=== PATIENT | male | born 1955 | race Caucasian/White ===

== ENCOUNTER 2018-06-14 15:14 | Emergency (ER) | payer MEDICARE, OTHER ==
[~2018-06-14] VITALS: Ht 185.4 cm; Wt 88.5 kg
[2018-06-14 15:33] VITALS: BP 189/106
== END 2018-06-14 16:57 | disposition home or self-care (01) ==
LOC: ER 15:26
DX: S60.551A Superficial foreign body of right hand, initial encounter (principal); M19.041 Primary osteoarthritis, right hand; F17.210 Nicotine dependence, cigarettes, uncomplicated; X58.XXXA Exposure to other specified factors, initial encounter; Y93.89 Activity, other specified; Y92.89 Other specified places as the place of occurrence of the external cause; Y99.8 Other external cause status
CPT/HCPCS: 10120; 73130

== ENCOUNTER 2018-10-11 16:17 | Inpatient (IN) | payer BC, MEDICAID ==
[~2018-10-11] VITALS: Ht 190.5 cm; Wt 96.1 kg
[2018-10-11 16:56] LABS: Basophils # (auto) 0.1 uL; Eosinophils # (auto) 0.1 uL; Eosinophils % (auto) 0.6 % (0.0-7.0); Hematocrit 44.9 % (41.0-53.0); Hemoglobin 14.8 g/dL (13.5-17.5); Lymphocytes # (auto) 1.7 uL; Lymphocytes % (auto) 16.8 % (10.0-50.0); Mean Corpuscular Hemoglobin 31.3 pg (28.0-32.0); Mean Corpuscular Hgb Conc. 33.1 g/dL (32.0-36.0); Mean Corpuscular Volume 94.5 fL (80.0-100.0); Monocytes # (auto) 0.8 uL; Monocytes % (auto) 7.8 % (0.0-12.0); Neutrophils # (auto) 7.3 uL; Neutrophils % (auto) 73.8 % (37.0-80.0); Nucleated Red Blood Cells % 0.4 %; Platelet Count (auto) 352 10^3/uL (140-450); Red Blood Cells 4.75 10^6/uL (4.5-5.90); Red Cell Distribution Width 14.4 % (11.8-14.3); White Blood Cell 9.9 10^3/uL (4.4-10.8)
[2018-10-11 17:12] LABS: Albumin 3.2 g/dL (3.4-5.0); Calcium 8.4 mg/dL (8.5-10.1); Potassium 4.4 mmol/L (3.5-5.1)
[2018-10-11 17:15] LABS: Total Protein 7.2 g/dL (6.4-8.2)
[2018-10-11] MEDS ORDERED: FUROSEMIDE 40 MG/4 ML VIAL IV ONE (17:30)
[2018-10-11 17:51] LABS: Magnesium 2.2 mg/dL (1.6-2.6)
[2018-10-11] MEDS ORDERED: TEMAZEPAM 15 MG CAP PO PRN (19:00)
[2018-10-11] MEDS ORDERED: LORazepam 0.5 MG TAB PO PRN (19:00)
[2018-10-11] MEDS ORDERED: MORPHINE SULFATE 10 MG/ML INJ 1ML SDV IV PRN ×2 (19:00)
[2018-10-11] MEDS ORDERED: NITROGLYCERIN 0.4 MG SL TAB SL PRN (19:00)
[2018-10-11] MEDS ORDERED: ACETAMINOPHEN 500 MG TAB PO PRN (19:00)
[2018-10-11] MEDS ORDERED: PROMETHAZINE HCL 25 MG/ML 1ML IV PRN (19:00)
[2018-10-11] MEDS ORDERED: LACTULOSE 20Gm/30ML SOLN PO PRN (19:00)
[2018-10-11] MEDS ORDERED: ALBUTEROL SULF 2.5 MG/0.5ML(0.5%) NEB SOLN NEB PRN (19:00)
[2018-10-11] MEDS ORDERED: HYDROcodone-ACET 5/325MG TAB PO PRN (19:00)
[2018-10-11] MEDS ORDERED: DEXTROSE (50%) 50ML SYRG IV PRN (19:00)
[2018-10-11 19:36] LABS: INR 1.22 (0.9-1.15); Partial Thromboplastin Time 25.2 sec (23.78-33.04); Prothrombin Time 12.9 sec (9.27-12.13)
[2018-10-11] MEDS ORDERED: OSELTAMIVIR 75 MG CAP PO ONE (19:45)
[2018-10-11 20:05] VITALS: BP 156/104
--- NOTE | 2018-10-11 20:05 | NUR ---
Telemetry admit from [facility] admitted to Telemetry unit after SBAR received. Patient oriented to IGGY PETERSEN, RN primary RN, unit, room, bed, and unit policies regarding patient care and visiting hours. Patient now on continuous telemetry monitoring, tele box # 8 and telemetry reading on arrival to unit is [facility] 114. Patient placed on bedside oxygen, weighed by bedscale and encouraged to call if they need something. All questions and concerns addressed, patient verbalized understanding. Informed in regards to POC and in regards to samples needed to be collected. will continue to monitor pt. Note:
[2018-10-11] MEDS: FUROSEMIDE 40 MG/4 ML VIAL IV SCH (20:22)
[2018-10-11] MEDS ORDERED: LABETALOL HCL 5 MG/ML ML 20ML VIAL IV ONE (20:45)
--- NOTE | 2018-10-11 20:46 | NUR ---
HOSPITALIST TELEPHONE ORDER Informed hospitalist in regards to pt BP 156/106 HR 114 TELEPHONE ORDER READ BACK Labetalol IV 10 mg ONCE
--- NOTE | 2018-10-11 21:05 | NUR ---
RAPID INFLUENZA A/B sent to lab through bullet
[2018-10-11] MEDS: CARVEDILOL 3.125 MG TAB PO SCH (21:13)
[2018-10-11] MEDS: SODIUM CHLOR 0.9% PF (SALINE LOCK) 10ML VIAL/SYR IV SCH (21:14)
[2018-10-11 22:00] VITALS: BP 156/104
[2018-10-11 22:55] LABS: Alcohol, Urine < 3.0 mg/dL (0-5); Amphetamine Screen, Urine POSITIVE (NEGATIVE); Barbiturate Scree,Urine NEGATIVE (NEGATIVE); Benzodiazephine Screen, Urine NEGATIVE (NEGATIVE); Cannabinoid Screen, Urine NEGATIVE (NEGATIVE); Cocaine Screen, Urine NEGATIVE (NEGATIVE); Opiate Scree,Urine NEGATIVE (NEGATIVE); Phencyclidine Screen, Urine NEGATIVE (NEGATIVE)
[2018-10-12] MEDS: ACCU-CHEK COMFORT CURVE STRIP VI SCH ×4 (00:02→17:54)
--- NOTE | 2018-10-12 00:15 | NUR ---
cALLED LAB Called lab in regards to 0000 trop lab draw update will continue to monitor.
--- NOTE | 2018-10-12 01:04 | NUR ---
CALLED LAB called lab in regards midnight trop, technical training specialist still hasnt been drawn but will call wharf labourer assigned for pt trops to be drawn, will continue to monitor pt.
[2018-10-12] MEDS: ALBUTEROL SULF 2.5 MG/0.5ML(0.5%) NEB SOLN NEB SCH ×4 (01:23→19:31)
[2018-10-12] MEDS: IPRATROPIUM BROM 0.5 MG/2.5ML INH SOL NEB SCH ×4 (01:24→19:31)
--- NOTE | 2018-10-12 01:25 | NUR ---
Respiratory note: AT BEDSIDE FOR MED NEB TX. PT TOLERATING WELL VIA MASK. PT FOUND OFF O2 POX 86. WILL PLACE PT BACK ON O2 WHEN TX IS DONE. O2 SET AT 3LPM.
[2018-10-12 01:33] VITALS: BP 137/83
--- NOTE | 2018-10-12 01:55 | NUR ---
PT ROUNDS PT off NC, Instructed pt he must have Oxygen due to his o2 levels dropping. NC reapplied will continue to monitor pt.
--- NOTE | 2018-10-12 02:36 | NUR ---
PT ROUNDS PT off NC reinstructed pt to replace oxygen, pt understood will continue to monitor pt.
[2018-10-12 04:38] VITALS: BP 132/93
[2018-10-12] MEDS: FUROSEMIDE 40 MG/4 ML VIAL IV SCH ×2 (05:35→17:56)
[2018-10-12] MEDS: SODIUM CHLOR 0.9% PF (SALINE LOCK) 10ML VIAL/SYR IV SCH ×2 (05:35→15:56)
[2018-10-12 06:04] LABS: Basophils # (auto) 0.1 uL; Eosinophils # (auto) 0.1 uL; Eosinophils % (auto) 1.4 % (0.0-7.0); Hemoglobin 13.3 g/dL (13.5-17.5); Lymphocytes # (auto) 1.8 uL; Lymphocytes % (auto) 19.8 % (10.0-50.0); Mean Corpuscular Hemoglobin 32.2 pg (28.0-32.0); Mean Corpuscular Volume 94.8 fL (80.0-100.0); Monocytes # (auto) 0.7 uL; Monocytes % (auto) 7.4 % (0.0-12.0); Neutrophils # (auto) 6.4 uL; Neutrophils % (auto) 70.4 % (37.0-80.0); Nucleated Red Blood Cells % 0.3 %; Platelet Count (auto) 330 10^3/uL (140-450); Red Blood Cells 4.11 10^6/uL (4.5-5.90); Red Cell Distribution Width 13.8 % (11.8-14.3); White Blood Cell 9.1 10^3/uL (4.4-10.8)
[2018-10-12 06:25] LABS: Albumin 2.8 g/dL (3.4-5.0); BUN/Creatinine Ratio 20.1; Potassium 3.8 mmol/L (3.5-5.1)
[2018-10-12 06:29] LABS: Bilirubin, Total 0.6 mg/dL (0.2-1.0); Total Protein 6.2 g/dL (6.4-8.2)
--- NOTE | 2018-10-12 08:00 | NUR ---
Opening Shift Note Assumed care of patient, awake, alert and oriented X4. No S/S of distress/SOB or pain. Tele# 8, sinus rhythm @ 98 bpm. IV to right forearm, 20 gauge, patent and saline locked. Instructed on POC and to call for assist PRN, verbalized understanding. Bed locked, in lowest position, call light within reach, will continue to monitor for changes Q1hr and PRN.
[2018-10-12 09:00] VITALS: BP 139/93
[2018-10-12] MEDS: cefTRIAXone 1GM/50ML D5W 50 ML IV SCH (09:38)
[2018-10-12] MEDS ORDERED: OSELTAMIVIR 75 MG CAP PO SCH (10:00)
--- NOTE | 2018-10-12 10:15 | NUR ---
ECHO robotics testing technician at bedside.
[2018-10-12] MEDS: AZITHROMYCIN 500MG/ 250ML 250 ML IV SCH (10:47)
[2018-10-12] MEDS: ASPirin 81 mg TAB PO SCH (10:48)
[2018-10-12] MEDS: CARVEDILOL 3.125 MG TAB PO SCH ×2 (10:48→21:44)
[2018-10-12] MEDS: POTASSIUM CHL 20 Meq TABLET PO SCH (10:48)
[2018-10-12] MEDS: PANTOPRAZOLE 40 MG TAB PO SCH (10:49)
[2018-10-12] MEDS: ENALAPRIL MALEATE 2.5 MG TAB PO SCH (10:49)
[2018-10-12] MEDS: ENOXAPARIN SOD 40 MG/0.4 ML SYRINGE SC SCH (10:49)
[2018-10-12 13:06] VITALS: BP 91/61
--- NOTE | 2018-10-12 14:32 | NUR ---
assessment Patient would like information on advanced directive. Patient has been provided with advanced directive. Christina Pineda to see for PCP. Addendum: 10/15/18 at 1433 by Christina BOWENS Amended: Links added.
--- NOTE | 2018-10-12 14:35 | NUR ---
ROUNDS Dr Ry Sung at bedside for rounds, new orders received and followed through. Patient updated on plan of care, verbalized understanding.
--- NOTE | 2018-10-12 16:00 | NUR ---
GI Dr Ricketts at bedside for GI consult, new orders received and followed through. Patient updated on plan of care, verbalized understanding.
[2018-10-12 17:12] VITALS: BP 109/72
--- NOTE | 2018-10-12 17:34 | NUR ---
CARDIOLOGY Dr Silverman at bedside for Cardiology consult, new orders received and followed through. Patient updated on plan of care, verbalized understanding.
--- NOTE | 2018-10-12 19:25 | NUR ---
Care endorsed to KAYLYN Grant, night nurse.
[2018-10-12 21:57] VITALS: BP 121/74
--- NOTE | 2018-10-13 00:08 | NUR ---
RT NOTE PT REFUSED TX. PT STATED THEY ARE BREATHING FINE. PT DENIES ANY SOB. NO SIGNS OF RESP DISTRESS NOTED BY RT. PT AWARE TO HAVE RT PAGED IF NEEDED. SPO2 97% ON RA, CR 85, RR 16.
[2018-10-13] MEDS: SODIUM CHLOR 0.9% PF (SALINE LOCK) 10ML VIAL/SYR IV SCH ×4 (00:15→22:37)
[2018-10-13] MEDS: ACCU-CHEK COMFORT CURVE STRIP VI SCH ×4 (00:15→18:00)
[2018-10-13 05:00] VITALS: BP 117/69
[2018-10-13] MEDS: IPRATROPIUM BROM 0.5 MG/2.5ML INH SOL NEB SCH ×4 (06:12→19:17)
[2018-10-13] MEDS: ALBUTEROL SULF 2.5 MG/0.5ML(0.5%) NEB SOLN NEB SCH ×4 (06:12→19:18)
[2018-10-13] MEDS: FUROSEMIDE 40 MG/4 ML VIAL IV SCH ×2 (06:40→17:43)
--- NOTE | 2018-10-13 07:00 | NUR ---
Patient is alert and awake, sitting up in bed, no distress noted and patient denies pain. Blood sugar this morning is 110.
[2018-10-13 07:17] LABS: Potassium 3.8 mmol/L (3.5-5.1)
[2018-10-13 07:25] LABS: Albumin 2.6 g/dL (3.4-5.0); Bilirubin, Total 0.6 mg/dL (0.2-1.0); Calcium 7.9 mg/dL (8.5-10.1); Total Protein 5.9 g/dL (6.4-8.2)
[2018-10-13 08:29] VITALS: BP 113/63
[2018-10-13] MEDS: cefTRIAXone 1GM/50ML D5W 50 ML IV SCH (10:11)
[2018-10-13] MEDS: CARVEDILOL 3.125 MG TAB PO SCH ×2 (10:13→22:37)
[2018-10-13] MEDS: ENALAPRIL MALEATE 2.5 MG TAB PO SCH (10:13)
[2018-10-13] MEDS: ENOXAPARIN SOD 40 MG/0.4 ML SYRINGE SC SCH (10:13)
[2018-10-13] MEDS: PANTOPRAZOLE 40 MG TAB PO SCH (10:14)
[2018-10-13] MEDS: ASPirin 81 mg TAB PO SCH (10:14)
[2018-10-13] MEDS: POTASSIUM CHL 20 Meq TABLET PO SCH (10:14)
[2018-10-13] MEDS: AZITHROMYCIN 500MG/ 250ML 250 ML IV SCH (11:15)
[2018-10-13 13:10] VITALS: BP 112/71
[2018-10-13 16:42] VITALS: BP 100/63
--- NOTE | 2018-10-13 19:30 | NUR ---
Opening Shift Note Received report from jazlyn Carvalho RN. Assumed care of patient, awake and alert. No S/S of distress/SOB or pain. Instructed on POC and to call for assist PRN, will continue to monitor for changes Q1hr and PRN. Bed placed in lowest position, bed alarm turned on and call light within reach.
[2018-10-13 20:00] VITALS: BP 117/71
[2018-10-13 22:00] VITALS: BP 117/71
[2018-10-14] MEDS: ALBUTEROL SULF 2.5 MG/0.5ML(0.5%) NEB SOLN NEB SCH ×2 (00:22)
[2018-10-14] MEDS: IPRATROPIUM BROM 0.5 MG/2.5ML INH SOL NEB SCH (00:22)
--- NOTE | 2018-10-14 00:24 | NUR ---
PT REFUSED ALBUTEROL AT THIS TIME. PT STATED THAT HE FEELS WORSE AFTER RECEIVING THE MEDICATION. ATROVENT ADMINISTERED VIA FACE MASK WITHOUT ADVERSE EVENTS.
[2018-10-14 05:59] VITALS: BP 109/68
[2018-10-14] MEDS: ACCU-CHEK COMFORT CURVE STRIP VI SCH ×2 (06:00)
--- NOTE | 2018-10-14 06:33 | NUR ---
PT awaken now alert. PT refused resp.tx. PT stared" Im breathing alright,Don't need a treatment right now'. Room air sats=94%, RR 17, no sob/resp.distress noted at tis time. Instructed PT if sob occurs to notify RN to call RT for resp.TX. PT understood. RN Juanita aware of refusal.
[2018-10-14] MEDS: FUROSEMIDE 40 MG/4 ML VIAL IV SCH (06:34)
[2018-10-14] MEDS: SODIUM CHLOR 0.9% PF (SALINE LOCK) 10ML VIAL/SYR IV SCH (06:34)
--- NOTE | 2018-10-14 06:50 | NUR ---
PATIENT IS RESTING IN BED WITH EYES CLOSED, NO DISTRESS NOTED AND PATIENT REFUSED PAIN.
--- NOTE | 2018-10-14 07:00 | NUR ---
RT reported that patient refused breathing treatments this am.
[2018-10-14 09:00] VITALS: BP 121/73
[2018-10-14] MEDS: cefTRIAXone 1GM/50ML D5W 50 ML IV SCH (09:21)
[2018-10-14] MEDS: PANTOPRAZOLE 40 MG TAB PO SCH (09:54)
[2018-10-14] MEDS: POTASSIUM CHL 20 Meq TABLET PO SCH (09:54)
[2018-10-14] MEDS: ENALAPRIL MALEATE 2.5 MG TAB PO SCH (09:54)
[2018-10-14] MEDS: ASPirin 81 mg TAB PO SCH (09:54)
[2018-10-14] MEDS: CARVEDILOL 3.125 MG TAB PO SCH (09:55)
[2018-10-14] MEDS: ENOXAPARIN SOD 40 MG/0.4 ML SYRINGE SC SCH (09:55)
[2018-10-14] MEDS: AZITHROMYCIN 500MG/ 250ML 250 ML IV SCH (09:55)
--- NOTE | 2018-10-14 10:00 | NUR ---
Dr. Ry Sung in to see patient as hospitalist.
[2018-10-14 10:26] VITALS: BP 121/73
[2018-10-15 09:35] LABS: Hepatitis B Surface Antibody Negative
[2018-10-15 10:13] LABS: Hepatitis A Total Antibody Negative
[2018-10-15 11:53] LABS: Hepatitis B Core Total AB Negative
[2018-10-15 12:23] LABS: Hepatitis B Surface Antigen Negative (Negative)
[2018-10-15 12:28] LABS: Hepatitis C Antibody Reactive (Negative)
== END 2018-10-14 12:25 | disposition home or self-care (01) | DRG 280 ==
LOC: ER 16:25 → TELE 18:49 → TELE-EAST 20:04
PROVIDERS: ADMIT Internal Medicine; ATTEND Family Medicine
DX: I21.4 Non-ST elevation (NSTEMI) myocardial infarction (principal); I50.33 Acute on chronic diastolic (congestive) heart failure; J18.9 Pneumonia, unspecified organism; I42.9 Cardiomyopathy, unspecified; J44.0 Chronic obstructive pulmonary disease with (acute) lower respiratory infection; F15.10 Other stimulant abuse, uncomplicated; F17.210 Nicotine dependence, cigarettes, uncomplicated; K75.9 Inflammatory liver disease, unspecified; I70.0 Atherosclerosis of aorta; I08.0 Rheumatic disorders of both mitral and aortic valves; K76.0 Fatty (change of) liver, not elsewhere classified; I73.00 Raynaud's syndrome without gangrene; N18.9 Chronic kidney disease, unspecified; Z90.81 Acquired absence of spleen; Z91.19 Patient's noncompliance with other medical treatment and regimen
CPT/HCPCS: 36415; 71045; 71046; 71250; 76705; 80053; 80061; 80307; 82550; 82962; 83036; 83615; 83735; 83880; 84443; 84484; 85025; 85610; 85652; 85730; 86141; 86704; 86706; 86708; 86803; 87040; 87340; 87804; 93005; 93306; 94640; 94761; 96374; 96376; G0378; J0696